=== PATIENT | female | born 1975 | race Caucasian/White ===

== ENCOUNTER 2016-05-26 15:25 | Emergency (ER) | payer OTHER ==
[2016-05-26 16:53] LABS: BASOPHILS 0.4 % (0.0-2.0); EOSINOPHILS 5.3 % (0-7); HEMATOCRIT 43.6 % (36.0-48.0); HEMOGLOBIN 14.5 g/dL (12-16); IMMATURE GRANULOCYTES 0.4 % (0-5); LYMPHOCYTES 28.2 % (15-50); MCH 29.7 pg (26.0-34.0); MCHC 33.3 g/dL (31.0-37.0); MCV 89.2 fL (80.0-100.0); MEAN PLATELET VOLUME 11.2 fL (7.4-10.4); MONOCYTES 5.7 % (2-11); RBC 4.89 10x6/uL (4.00-5.40); RDW 12.7 % (11.5-14.5)
[2016-05-26 16:54] LABS: PLATELET COUNT 244 10x3/uL (130-400)
== END 2016-05-26 20:20 | disposition home or self-care (01) ==
LOC: D.ER 15:25
PROVIDERS: Family Medicine
DX: S16.1XXA Strain of muscle, fascia and tendon at neck level, initial encounter (principal); V43.52XA Car driver injured in collision with other type car in traffic accident, initial encounter; Y93.89 Activity, other specified; Y92.410 Unspecified street and highway as the place of occurrence of the external cause; J45.909 Unspecified asthma, uncomplicated; E11.9 Type 2 diabetes mellitus without complications

== ENCOUNTER 2016-08-28 17:28 | Emergency (ER) | payer OTHER | END 2016-08-28 19:10 | disposition left against medical advice (07) | LOC: D.ER 17:28 | DX: R42 Dizziness and giddiness (principal) ==

== ENCOUNTER 2016-12-28 22:50 | Emergency (ER) | payer OTHER ==
[2016-12-28 23:23] LABS: HEMOGLOBIN 13.2 g/dL (12-16); LYMPHOCYTES 34.9 % (15-50); MCH 29.8 pg (26.0-34.0); MCHC 33.8 g/dL (31.0-37.0); MEAN PLATELET VOLUME 10.8 fL (7.4-10.4); NEUTROPHILS 56.4 % (40-80); PLATELET COUNT 235 10x3/uL (130-400); RBC 4.43 10x6/uL (4.00-5.40); RDW 12.3 % (11.5-14.5); WBC 9.5 10x3/uL (4.8-10.8)
[2016-12-28 23:27] LABS: APPEARANCE HAZY (CLEAR); BACTERIA NONE SEEN /hpf (NONE SEEN); BILIRUBIN NEGATIVE (NEGATIVE); COLOR YELLOW (YELLOW); EPITHELIAL CELLS 0-5 /hpf (0-5); GLUCOSE 1000 mg/dL (NEGATIVE); KETONE NEGATIVE (NEGATIVE); NITRITE NEGATIVE (NEGATIVE); PROTEIN NEGATIVE (NEGATIVE); RED CELLS - URINE NONE SEEN /hpf (0-5); SPECIFIC GRAVITY 1.015 (1.005-1.020); UROBILINOGEN NORMAL (NORMAL)
[2016-12-28 23:35] LABS: ALBUMIN 3.9 g/dL (3.4-5.0); ANION GAP 15.6 mmol/L (8-16); BILIRUBIN - TOTAL 0.38 mg/dL (0.2-1.3); CARBON DIOXIDE 25.7 mmol/L (21.0-32.0); CREATININE - SERUM 0.9 mg/dL (0.6-1.3); POTASSIUM - SERUM 4.3 mmol/L (3.5-5.1); PROTEIN - SERUM 7.6 g/dL (6.4-8.2)
== END 2016-12-29 02:25 | disposition home or self-care (01) ==
LOC: D.ER 22:50
PROVIDERS: Family Medicine
DX: R10.9 Unspecified abdominal pain (principal); R74.8 Abnormal levels of other serum enzymes; E11.9 Type 2 diabetes mellitus without complications

== ENCOUNTER 2017-05-04 18:47 | Emergency (ER) | payer OTHER ==
[2017-05-04 19:33] LABS: BASOPHILS 0.6 % (0-2); EOSINOPHILS 5.6 % (0-7); HEMATOCRIT 39.5 % (36.0-48.0); HEMOGLOBIN 13.3 g/dL (12-16); IMMATURE GRANULOCYTES 0.4 % (0-5); LYMPHOCYTES 23.7 % (15-50); MCH 29.7 pg (26.0-34.0); MCHC 33.7 g/dL (31.0-37.0); MCV 88.2 fL (80.0-100.0); MONOCYTES 5.8 % (2-11); NEUTROPHILS 63.9 % (40-80); PLATELET COUNT 269 10x3/uL (130-400); RBC 4.48 10x6/uL (4.00-5.40); WBC 10.7 10x3/uL (4.8-10.8)
[2017-05-04 19:37] LABS: KETONE - SERUM NEGATIVE (NEGATIVE)
[2017-05-04 19:41] LABS: ALBUMIN 3.7 g/dL (3.4-5.0); ALKALINE PHOSPHATASE 88 U/L (46-116); ALT (SGPT) 37 U/L (10-68); BILIRUBIN - TOTAL 0.29 mg/dL (0.2-1.3); CALC OSMOLALITY 283 mosm/kg (275-300); CALCIUM 8.9 mg/dL (8.5-10.1); CARBON DIOXIDE 25.6 mmol/L (21.0-32.0); CHLORIDE - SERUM 97 mmol/L (98-107); CREATININE - SERUM 0.9 mg/dL (0.6-1.3); PROTEIN - SERUM 7.6 g/dL (6.4-8.2); SODIUM 134 mmol/L (136-145); UREA NITROGEN 15 mg/dL (7-18); eGFR NON AFRICAN AMERICAN 73 mL/min (90-120)
[2017-05-04 19:42] LABS: APPEARANCE HAZY (CLEAR); BILIRUBIN NEGATIVE (NEGATIVE); COLOR YELLOW (YELLOW); GLUCOSE 1000 mg/dL (NEGATIVE); KETONE NEGATIVE (NEGATIVE); NITRITE NEGATIVE (NEGATIVE); PROTEIN NEGATIVE (NEGATIVE); UROBILINOGEN NORMAL (NORMAL)
[2017-05-04 19:42] LABS: GLUCOSE 371 mg/dL (74-106)
== END 2017-05-04 20:40 | disposition home or self-care (01) ==
LOC: D.ER 18:47
PROVIDERS: Emergency Medicine
DX: E11.65 Type 2 diabetes mellitus with hyperglycemia (principal)

== ENCOUNTER 2017-07-11 11:03 | Emergency (ER) | payer OTHER | END 2017-07-11 12:00 | disposition home or self-care (01) | LOC: D.ER 11:03 | DX: R51 Headache (principal); E11.9 Type 2 diabetes mellitus without complications ==

== ENCOUNTER 2017-10-02 10:31 | Emergency (ER) | payer OTHER ==
[~2017-10-02] VITALS: Ht 157.5 cm; Wt 101.4 kg
[2017-10-02 10:36] VITALS: Ht 157.5 cm; Wt 101.4 kg
[2017-10-02] MEDS ORDERED: GLUCOTROL 5 MG T5 MG (10:39)
[2017-10-02] MEDS ORDERED: GLUCOTROL ER2.5 MG PO (10:41)
[2017-10-02] MEDS ORDERED: MOBIC7.5 MG PO (10:41)
[2017-10-02] MEDS ORDERED: LISINOPRIL5 MG (10:41)
[2017-10-02] MEDS ORDERED: PRAVACHOL40 MG PO (10:41)
[2017-10-02] MEDS ORDERED: DITROPAN X10 MG/BOTT PO (10:42)
[2017-10-02] MEDS ORDERED: LANTUS INSULIN10 ML SC (10:43)
[2017-10-02] MEDS ORDERED: ZOFRAN ODT4 MG/UDTAB PO (10:43)
[2017-10-02] MEDS ORDERED: GEMFIBROZIL600 MG PO (10:44)
[2017-10-02] MEDS ORDERED: CLARITIN 10 MG10 MG PO (10:44)
[2017-10-02] MEDS ORDERED: ESTRACE2 MG PO (10:44)
[2017-10-02] MEDS ORDERED: PROTONIX40 MG PO (10:45)
[2017-10-02] MEDS ORDERED: SINGULAIR10 MG PO (10:45)
[2017-10-02] MEDS ORDERED: TYLENOL W/CODEI1 TAB PO (11:17)
[2017-10-02] MEDS ORDERED: GENTAK3.5 GM RIGHT EYE (11:17)
[2017-10-02 11:41] VITALS: BP 138/72
== END 2017-10-02 11:42 | disposition home or self-care (01) ==
LOC: D.ER 10:31
DX: S05.01XA Injury of conjunctiva and corneal abrasion without foreign body, right eye, initial encounter (principal); X58.XXXA Exposure to other specified factors, initial encounter; Y93.89 Activity, other specified; Y92.019 Unspecified place in single-family (private) house as the place of occurrence of the external cause; E11.9 Type 2 diabetes mellitus without complications; I10 Essential (primary) hypertension; J44.9 Chronic obstructive pulmonary disease, unspecified; K21.9 Gastro-esophageal reflux disease without esophagitis

== ENCOUNTER 2017-10-09 22:03 | Emergency (ER) | payer OTHER ==
[~2017-10-09] VITALS: Ht 157.5 cm; Wt 100.0 kg
[~2017-10-09 22:03] MED LIST: CLARITIN 10 MG10 MG PO; DITROPAN X10 MG/BOTT PO; ESTRACE2 MG PO; GEMFIBROZIL600 MG PO; GENTAK3.5 GM RIGHT EYE; GLUCOTROL 5 MG T5 MG; GLUCOTROL ER2.5 MG PO; LANTUS INSULIN10 ML SC; LISINOPRIL5 MG; MOBIC7.5 MG PO; PRAVACHOL40 MG PO; PROTONIX40 MG PO; SINGULAIR10 MG PO; TYLENOL W/CODEI1 TAB PO; ZOFRAN ODT4 MG/UDTAB PO
[2017-10-09 22:17] VITALS: Ht 157.5 cm; Wt 100.0 kg
[2017-10-09] MEDS ORDERED: NORCO 7.5/325 T1 TA1 PO (23:02)
[2017-10-09] MEDS ORDERED: CYCLOBENZAPRINE10 MG PO (23:04)
[2017-10-09 23:19] VITALS: BP 125/78
== END 2017-10-09 23:20 | disposition home or self-care (01) ==
LOC: D.ER 22:03
DX: S46.912A Strain of unspecified muscle, fascia and tendon at shoulder and upper arm level, left arm, initial encounter (principal); X50.0XXA Overexertion from strenuous movement or load, initial encounter; Y93.89 Activity, other specified; Y92.89 Other specified places as the place of occurrence of the external cause; E11.9 Type 2 diabetes mellitus without complications; I10 Essential (primary) hypertension; J44.9 Chronic obstructive pulmonary disease, unspecified

== ENCOUNTER 2017-10-16 23:35 | Emergency (ER) | payer OTHER ==
[~2017-10-16] VITALS: Ht 157.5 cm; Wt 100.0 kg
[~2017-10-16 23:35] MED LIST changes: +CYCLOBENZAPRINE10 MG PO; +NORCO 7.5/325 T1 TA1 PO
[2017-10-16 23:40] VITALS: Ht 157.5 cm; Wt 100.0 kg
[2017-10-17] MEDS ORDERED: TORADOL10 MG PO (01:29)
[2017-10-17 02:04] VITALS: BP 128/74
== END 2017-10-17 02:04 | disposition home or self-care (01) ==
LOC: D.ER 23:35
DX: S93.401A Sprain of unspecified ligament of right ankle, initial encounter (principal); W18.2XXA Fall in (into) shower or empty bathtub, initial encounter; Y93.E1 Activity, personal bathing and showering; Y92.012 Bathroom of single-family (private) house as the place of occurrence of the external cause; S00.93XA Contusion of unspecified part of head, initial encounter; E11.9 Type 2 diabetes mellitus without complications; I10 Essential (primary) hypertension; J44.9 Chronic obstructive pulmonary disease, unspecified

== ENCOUNTER 2017-10-31 14:24 | Emergency (ER) | payer OTHER ==
[~2017-10-31] VITALS: Ht 157.5 cm; Wt 95.3 kg
[~2017-10-31 14:24] MED LIST changes: +TORADOL10 MG PO
[2017-10-31 14:35] VITALS: BP 126/77; Ht 157.5 cm; Wt 95.3 kg
[2017-10-31 14:56] LABS: BASOPHILS 0.7 % (0-2); HEMOGLOBIN 12.8 g/dL (12-16); IMMATURE GRANULOCYTES 0.4 % (0-5); LYMPHOCYTES 26.7 % (15-50); MCH 29.6 pg (26.0-34.0); MCHC 33.7 g/dL (31.0-37.0); MCV 87.8 fL (80.0-100.0); MEAN PLATELET VOLUME 10.9 fL (7.4-10.4); MONOCYTES 4.9 % (2-11); NEUTROPHILS 64.3 % (40-80); PLATELET COUNT 218 10x3/uL (130-400); RBC 4.33 10x6/uL (4.00-5.40); RDW 12.6 % (11.5-14.5); WBC 7.4 10x3/uL (4.8-10.8)
[2017-10-31 15:08] LABS: APPEARANCE CLEAR (CLEAR); BILIRUBIN NEGATIVE (NEGATIVE); COLOR STRAW (YELLOW); GLUCOSE 1000 mg/dL (NEGATIVE); KETONE NEGATIVE (NEGATIVE); NITRITE NEGATIVE (NEGATIVE); PROTEIN NEGATIVE (NEGATIVE); SPECIFIC GRAVITY 1.015 (1.005-1.020); UROBILINOGEN NORMAL (NORMAL)
[2017-10-31 15:20] LABS: ALBUMIN 3.2 g/dL (3.4-5.0); ALKALINE PHOSPHATASE 79 U/L (46-116); ALT (SGPT) 28 U/L (10-68); AMYLASE - SERUM 38 U/L (25-115); BILIRUBIN - TOTAL 0.27 mg/dL (0.2-1.3); CALC OSMOLALITY 284 mosm/kg (275-300); CALCIUM 8.6 mg/dL (8.5-10.1); CARBON DIOXIDE 27.9 mmol/L (21.0-32.0); CHLORIDE - SERUM 99 mmol/L (98-107); CREATININE - SERUM 0.8 mg/dL (0.6-1.3); GLUCOSE 387 mg/dL (74-106); LIPASE 210 U/L (73-393); MAGNESIUM - SERUM 1.9 mg/dL (1.8-2.4); POTASSIUM - SERUM 4.3 mmol/L (3.5-5.1); PROTEIN - SERUM 7.1 g/dL (6.4-8.2); SODIUM 135 mmol/L (136-145); UREA NITROGEN 11 mg/dL (7-18); eGFR NON AFRICAN AMERICAN 84 mL/min (90-120)
[2017-10-31] MEDS ORDERED: BENTYL 20 MG TA20 MG PO (19:58)
[2017-10-31] MEDS ORDERED: COMPAZINE10 MG PO (19:58)
== END 2017-10-31 20:10 | disposition home or self-care (01) ==
LOC: D.ER 14:24
PROVIDERS: Family Medicine
DX: K52.9 Noninfective gastroenteritis and colitis, unspecified (principal); R11.2 Nausea with vomiting, unspecified; E11.9 Type 2 diabetes mellitus without complications; I10 Essential (primary) hypertension

== ENCOUNTER 2017-12-13 15:43 | Emergency (ER) | payer OTHER ==
[~2017-12-13] VITALS: Ht 157.5 cm; Wt 97.3 kg
[~2017-12-13 15:43] MED LIST changes: +BENTYL 20 MG TA20 MG PO; +COMPAZINE10 MG PO
[2017-12-13 15:54] VITALS: Ht 157.5 cm; Wt 97.3 kg
[2017-12-13] MEDS ORDERED: EC-NAPROSYN500 MG PO (17:31)
[2017-12-13 17:39] VITALS: BP 126/73
== END 2017-12-13 17:40 | disposition home or self-care (01) ==
LOC: D.ER 15:43
DX: S90.31XA Contusion of right foot, initial encounter (principal); X58.XXXA Exposure to other specified factors, initial encounter; Y93.89 Activity, other specified; Y92.89 Other specified places as the place of occurrence of the external cause; E11.9 Type 2 diabetes mellitus without complications; I10 Essential (primary) hypertension; J44.9 Chronic obstructive pulmonary disease, unspecified

== ENCOUNTER → 2018-04-28 12:12 | Outpatient (CLI) | payer OTHER ==
[2017-12-13 15:54] VITALS: BMI 39.2
[~2018-04-28 12:12] MED LIST changes: +EC-NAPROSYN500 MG PO
== END | disposition home or self-care (01) ==
LOC: D.MRI 12:12
DX: R51 Headache (principal); M54.2 Cervicalgia

== ENCOUNTER 2018-06-09 22:04 | Observation (INO) | payer OTHER ==
[~2018-06-09] VITALS: Ht 157.5 cm; Wt 98.6 kg
[2018-06-10 02:23] VITALS: BP 145/89
[2018-06-10 02:34] LABS: HEMATOCRIT 37.1 % (36.0-48.0); HEMOGLOBIN 12.8 g/dL (12-16); LYMPHOCYTES 38.2 % (15-50); MCH 29.8 pg (26.0-34.0); MCHC 34.5 g/dL (31.0-37.0); MCV 86.5 fL (80.0-100.0); MEAN PLATELET VOLUME 10.7 fL (7.4-10.4); NEUTROPHILS 53.8 % (40-80); PLATELET COUNT 221 10x3/uL (130-400); RBC 4.29 10x6/uL (4.00-5.40); RDW 12.5 % (11.5-14.5); WBC 7.1 10x3/uL (4.8-10.8)
[2018-06-10 02:48] LABS: ALBUMIN 3.2 g/dL (3.4-5.0); ALKALINE PHOSPHATASE 71 U/L (46-116); ALT (SGPT) 38 U/L (10-68); BILIRUBIN - TOTAL 0.31 mg/dL (0.2-1.3); CALC OSMOLALITY 285 mosm/kg (275-300); CALCIUM 7.9 mg/dL (8.5-10.1); CARBON DIOXIDE 28.2 mmol/L (21.0-32.0); CHLORIDE - SERUM 99 mmol/L (98-107); CREATININE - SERUM 0.7 mg/dL (0.6-1.3); POTASSIUM - SERUM 4.1 mmol/L (3.5-5.1); SODIUM 136 mmol/L (136-145); UREA NITROGEN 18 mg/dL (7-18); eGFR NON AFRICAN AMERICAN > 90 mL/min (90-120)
[2018-06-10 02:49] LABS: GLUCOSE 309 mg/dL (74-106)
[2018-06-10 03:28] LABS: APPEARANCE HAZY (CLEAR); BILIRUBIN NEGATIVE (NEGATIVE); COLOR YELLOW (YELLOW); GLUCOSE 500 mg/dL (NEGATIVE); KETONE NEGATIVE (NEGATIVE); NITRITE NEGATIVE (NEGATIVE); PROTEIN NEGATIVE (NEGATIVE); UROBILINOGEN NORMAL (NORMAL)
[2018-06-10] MEDS ORDERED: CLARITIN 10 MG10 MG PO (07:14)
[2018-06-10] MEDS ORDERED: MOBIC7.5 MG PO (07:14)
[2018-06-10] MEDS ORDERED: OXYBUTYNIN CHLOR5 MG PO (07:15)
[2018-06-10 07:38] VITALS: BP 143/87; BMI 39.8
[2018-06-10 07:54] VITALS: Ht 157.5 cm; Wt 98.6 kg
== END 2018-06-10 15:54 | disposition home or self-care (01) ==
LOC: D.ER 22:04 → D.EDHOLD 06-10 02:30 → OBSVTIME 06-10 02:30 → D.EDHOLD 06-10 02:30
PROVIDERS: Family Medicine; ADMIT Internal Medicine Nephrology; ATTEND Internal Medicine Nephrology
DX: R59.0 Localized enlarged lymph nodes (principal); E11.9 Type 2 diabetes mellitus without complications; J44.9 Chronic obstructive pulmonary disease, unspecified; I10 Essential (primary) hypertension; R20.0 Anesthesia of skin; R53.1 Weakness

== ENCOUNTER 2018-06-13 17:13 | Emergency (ER) | payer OTHER ==
[~2018-06-13] VITALS: Ht 157.5 cm; Wt 98.6 kg
[~2018-06-13 17:13] MED LIST changes: +OXYBUTYNIN CHLOR5 MG PO
[2018-06-13 17:25] VITALS: Ht 157.5 cm; Wt 98.6 kg
[2018-06-13] MEDS ORDERED: VIBRAMYCIN 100100 MG PO (19:02)
[2018-06-13] MEDS ORDERED: VOLTAREN75 MG PO (19:02)
[2018-06-13 19:55] VITALS: BP 126/72
== END 2018-06-13 19:55 | disposition home or self-care (01) ==
LOC: D.ER 17:13
DX: R59.0 Localized enlarged lymph nodes (principal); J02.9 Acute pharyngitis, unspecified; E11.9 Type 2 diabetes mellitus without complications; J44.9 Chronic obstructive pulmonary disease, unspecified; I10 Essential (primary) hypertension; F32.9 Major depressive disorder, single episode, unspecified

== ENCOUNTER 2018-07-12 19:51 | Emergency (ER) | payer OTHER ==
[~2018-07-12 19:51] MED LIST changes: +VIBRAMYCIN 100100 MG PO; +VOLTAREN75 MG PO
[2018-07-12 20:14] VITALS: BMI 39.8
[2018-07-12] MEDS ORDERED: VOLTAREN75 MG PO (21:21)
[2018-07-12 21:34] VITALS: BP 132/74
== END 2018-07-12 21:34 | disposition home or self-care (01) ==
LOC: D.ER 19:51
DX: M54.2 Cervicalgia (principal)

== ENCOUNTER 2018-07-28 22:43 | Emergency (ER) | payer OTHER ==
[~2018-07-28] VITALS: Ht 157.5 cm; Wt 100.0 kg
[2018-07-28 23:17] VITALS: Ht 157.5 cm; Wt 100.0 kg
[2018-07-29 02:16] VITALS: BP 112/77
== END 2018-07-29 02:02 | disposition home or self-care (01) ==
LOC: D.ER 22:43
DX: S90.32XA Contusion of left foot, initial encounter (principal); W20.8XXA Other cause of strike by thrown, projected or falling object, initial encounter; Y93.89 Activity, other specified; Y92.89 Other specified places as the place of occurrence of the external cause

== ENCOUNTER 2018-10-23 15:23 | Emergency (ER) | payer OTHER ==
[~2018-10-23] VITALS: Ht 157.5 cm; Wt 101.4 kg
[2018-10-23 15:43] VITALS: Ht 157.5 cm; Wt 101.4 kg
[2018-10-23] MEDS ORDERED: CLEOCIN HCL300 MG PO (18:03)
[2018-10-23 18:19] VITALS: BP 128/77
== END 2018-10-23 18:19 | disposition home or self-care (01) ==
LOC: D.ER 15:23
DX: L73.9 Follicular disorder, unspecified (principal); E11.9 Type 2 diabetes mellitus without complications; I10 Essential (primary) hypertension

== ENCOUNTER → 2018-11-27 13:26 | Outpatient (CLI) | payer OTHER ==
[2018-10-23 15:43] VITALS: BMI 40.9
[~2018-11-27 13:26] MED LIST changes: +CLEOCIN HCL300 MG PO
== END | disposition home or self-care (01) ==
LOC: D.RAD 13:26
DX: M25.571 Pain in right ankle and joints of right foot (principal)

== ENCOUNTER 2019-02-03 08:00 | Outpatient (CLI) | payer OTHER ==
[2018-10-23 15:43] VITALS: BMI 40.9
== END 2019-02-03 23:59 | disposition home or self-care (01) ==
LOC: D.MAMMO 08:00
PROVIDERS: ATTEND Nurse Practitioner
DX: Z12.31 Encounter for screening mammogram for malignant neoplasm of breast (principal)

== ENCOUNTER 2019-03-09 20:49 | Emergency (ER) | payer OTHER ==
[~2019-03-09] VITALS: Ht 157.5 cm; Wt 100.0 kg
[2019-03-09 20:57] VITALS: Ht 157.5 cm; Wt 100.0 kg
--- NOTE | 2019-03-09 22:01 | NUR ---
DR ESTEVEZ NOTIFIED AND REVIEWED PT's BEHAVIOR AND ASSESSMENT RESULTS. PT IS A LOW RISK PER DR ESTEVEZ. DR ESTEVEZ STATED TO GIVE RESOURCES TO PT AT TIME OF DISCHARGE. NO FURTHER ORDERS AT THIS TIME. RESOURCES REVIEWED WITH PT AND SHE VERBALIZED UNDERSTANDING.
[2019-03-09] MEDS ORDERED: NAPROSYN500 MG PO (22:04)
[2019-03-09 22:20] VITALS: BP 130/82
== END 2019-03-09 22:24 | disposition home or self-care (01) ==
LOC: D.ER 20:49
DX: S83.91XA Sprain of unspecified site of right knee, initial encounter (principal); W18.09XA Striking against other object with subsequent fall, initial encounter; S16.1XXA Strain of muscle, fascia and tendon at neck level, initial encounter; S09.90XA Unspecified injury of head, initial encounter; Y93.9 Activity, unspecified; Y92.9 Unspecified place or not applicable; E11.9 Type 2 diabetes mellitus without complications; J44.9 Chronic obstructive pulmonary disease, unspecified; Z79.84 Long term (current) use of oral hypoglycemic drugs; Z79.4 Long term (current) use of insulin

== ENCOUNTER → 2019-05-21 14:13 | Outpatient (CLI) | payer OTHER ==
[2019-03-09 20:57] VITALS: BMI 40.3
[~2019-05-21 14:13] MED LIST changes: +MIRALAX17 GM PO; +NAPROSYN500 MG PO
== END | disposition home or self-care (01) ==
LOC: D.RAD 14:13
PROVIDERS: ATTEND Nurse Practitioner
DX: R10.32 Left lower quadrant pain (principal)

== ENCOUNTER 2019-05-21 20:27 | Emergency (ER) | payer OTHER ==
[~2019-05-21] VITALS: Ht 157.5 cm; Wt 99.1 kg
[~2019-05-21 20:27] MED LIST changes: -MIRALAX17 GM PO
[2019-05-21 20:36] VITALS: Ht 157.5 cm; Wt 99.1 kg
[2019-05-21 20:57] LABS: BILIRUBIN NEGATIVE (NEGATIVE); GLUCOSE 1000 mg/dL (NEGATIVE); KETONE NEGATIVE (NEGATIVE); NITRITE NEGATIVE (NEGATIVE); SPECIFIC GRAVITY 1.025 (1.005-1.020); UROBILINOGEN NORMAL (NORMAL)
[2019-05-21 20:59] LABS: HCG URINE NEGATIVE (NEGATIVE)
[2019-05-21 21:02] LABS: BASOPHILS 0.4 % (0-2); EOSINOPHILS 1.9 % (0-7); HEMATOCRIT 40.4 % (36.0-48.0); HEMOGLOBIN 13.7 g/dL (12-16); IMMATURE GRANULOCYTES 0.3 % (0-5); LYMPHOCYTES 30.5 % (15-50); MCH 30.4 pg (26.0-34.0); MCHC 33.9 g/dL (31.0-37.0); MCV 89.6 fL (80.0-100.0); MEAN PLATELET VOLUME 10.8 fL (7.4-10.4); MONOCYTES 5.8 % (2-11); NEUTROPHILS 61.1 % (40-80); PLATELET COUNT 252 10x3/uL (130-400); RBC 4.51 10x6/uL (4.00-5.40); RDW 12.9 % (11.5-14.5); WBC 9.9 10x3/uL (4.8-10.8)
[2019-05-21 21:10] LABS: CALCIUM 8.1 mg/dL (8.5-10.1); CARBON DIOXIDE 26.1 mmol/L (21.0-32.0); CHLORIDE - SERUM 96 mmol/L (98-107); CREATININE - SERUM 0.8 mg/dL (0.6-1.3); POTASSIUM - SERUM 3.9 mmol/L (3.5-5.1); SODIUM 133 mmol/L (136-145); UREA NITROGEN 14 mg/dL (7-18); eGFR NON AFRICAN AMERICAN 83 mL/min (90-120)
[2019-05-21 21:19] LABS: ALBUMIN 3.1 g/dL (3.4-5.0); ALKALINE PHOSPHATASE 73 U/L (30-120); AMYLASE - SERUM 43 U/L (25-115); BILIRUBIN - TOTAL 0.32 mg/dL (0.2-1.3); LIPASE 228 U/L (73-393); PROTEIN - SERUM 7.1 g/dL (6.4-8.2)
[2019-05-21 21:27] LABS: ALT (SGPT) 43 U/L (10-68); CALC OSMOLALITY 281 mosm/kg (275-300); GLUCOSE 373 mg/dL (74-106); TROPONIN-I < 0.017 ng/mL (0.000-0.060)
[2019-05-21] MEDS ORDERED: MIRALAX17 GM PO (23:00)
[2019-05-21 23:30] VITALS: BP 144/83
== END 2019-05-21 23:30 | disposition home or self-care (01) ==
LOC: D.ER 20:27
PROVIDERS: Family Medicine
DX: R10.9 Unspecified abdominal pain (principal); E11.65 Type 2 diabetes mellitus with hyperglycemia; Z79.4 Long term (current) use of insulin; J44.9 Chronic obstructive pulmonary disease, unspecified; K21.9 Gastro-esophageal reflux disease without esophagitis

== ENCOUNTER 2019-10-05 15:00 | Outpatient (CLI) | payer OTHER ==
[2019-05-21 20:36] VITALS: BMI 39.9
[~2019-10-05 15:00] MED LIST changes: +MIRALAX17 GM PO
== END 2019-10-05 16:00 | disposition home or self-care (01) ==
LOC: D.MAMMO 15:00
PROVIDERS: ATTEND Nurse Practitioner
DX: R92.2 Inconclusive mammogram (principal)

== ENCOUNTER → 2019-12-15 07:54 | Outpatient (CLI) | payer OTHER ==
[2019-05-21 20:36] VITALS: BMI 39.9
[2019-12-15 08:59] LABS: ALBUMIN 3.3 g/dL (3.4-5.0); BILIRUBIN - DIRECT 0.09 mg/dL (0.00-0.30); BILIRUBIN - INDIRECT 0.31 mg/dL (0.00-1.00); BILIRUBIN - TOTAL 0.4 mg/dL (0.2-1.3); PROTEIN - SERUM 7.1 g/dL (6.4-8.2)
== END | disposition home or self-care (01) ==
LOC: D.US 12-14 09:00
PROVIDERS: ATTEND Internal Medicine Gastroenterology
DX: K76.0 Fatty (change of) liver, not elsewhere classified (principal)

== ENCOUNTER 2019-12-21 15:31 | Emergency (ER) | payer OTHER ==
[2019-05-21 20:36] VITALS: BMI 39.9
== END 2019-12-21 16:39 | disposition left against medical advice (07) ==
LOC: D.ER 15:31
DX: R10.9 Unspecified abdominal pain (principal)